=== PATIENT | female | born 1990 | race African-American/Black ===

== ENCOUNTER 2017-05-25 02:45 | Emergency (ER) | payer MEDICAID ==
[~2017-05-25] VITALS: Ht 165.1 cm; Wt 63.5 kg
[2017-05-25 03:38] VITALS: BP 133/104
== END 2017-05-25 04:24 | disposition left against medical advice (07) ==
LOC: ER 02:46
DX: S41.051A Open bite of right shoulder, initial encounter (principal); Z53.21 Procedure and treatment not carried out due to patient leaving prior to being seen by health care provider; W57.XXXA Bitten or stung by nonvenomous insect and other nonvenomous arthropods, initial encounter; Y93.89 Activity, other specified; Y92.89 Other specified places as the place of occurrence of the external cause; Y99.8 Other external cause status

== ENCOUNTER 2019-03-23 00:24 | Emergency (ER) | payer MEDICAID ==
[~2019-03-23] VITALS: Ht 165.1 cm; Wt 77.1 kg
[2019-03-23 00:47] VITALS: BP 111/70
[2019-03-23] MEDS ORDERED: LIDOCAINE 1% HCL (LOCAL ANESTH.) INJ 20ML MDV ID ONE (02:30)
[2019-03-23] MEDS ORDERED: cefTRIAXone SOD 1,000 MG VL IM ONE (02:30)
[2019-03-23] MEDS ORDERED: TETANUS-DIPTH-ACEL PERTUSSIS 0.5ML SYRG IM ONE (02:30)
== END 2019-03-23 02:53 | disposition home or self-care (01) ==
LOC: ER 00:24
DX: S61.411A Laceration without foreign body of right hand, initial encounter (principal); J45.909 Unspecified asthma, uncomplicated; Z23 Encounter for immunization; W26.8XXA Contact with other sharp object(s), not elsewhere classified, initial encounter; Y93.89 Activity, other specified; Y92.89 Other specified places as the place of occurrence of the external cause; Y99.8 Other external cause status
CPT/HCPCS: 12001; 90471; 90715; 96372; 99283; J0696; J2001

== ENCOUNTER 2019-07-20 10:07 | Emergency (ER) | payer MEDICAID ==
[~2019-07-20] VITALS: Ht 165.1 cm; Wt 74.8 kg
[2019-07-20 10:20] VITALS: BP 126/88
== END 2019-07-20 12:15 ==
LOC: ER 10:12
DX: S00.11XA Contusion of right eyelid and periocular area, initial encounter (principal); J45.909 Unspecified asthma, uncomplicated; Y04.0XXA Assault by unarmed brawl or fight, initial encounter; Y93.89 Activity, other specified; Y92.89 Other specified places as the place of occurrence of the external cause; Y99.8 Other external cause status
CPT/HCPCS: 70486

== ENCOUNTER 2022-03-02 13:36 | Emergency (ER) | payer MEDICAID ==
[~2022-03-02] VITALS: Ht 165.1 cm; Wt 65.0 kg
[2022-03-02 15:23] VITALS: BP 135/87
== END 2022-03-02 15:41 | disposition home or self-care (01) ==
LOC: ER 13:36
DX: S60.221A Contusion of right hand, initial encounter (principal); J45.909 Unspecified asthma, uncomplicated; F12.10 Cannabis abuse, uncomplicated; W22.8XXA Striking against or struck by other objects, initial encounter; Y93.89 Activity, other specified; Y92.39 Other specified sports and athletic area as the place of occurrence of the external cause; Y99.8 Other external cause status
CPT/HCPCS: 73110; 73130